=== PATIENT | male | born 1960 | race Caucasian/White ===

== ENCOUNTER 2016-05-16 12:45 | Outpatient (CLI) | payer MEDICAID, MEDICARE | END 2016-05-16 12:46 | disposition home or self-care (01) | DX: I49.3 Ventricular premature depolarization (principal); E78.00 Pure hypercholesterolemia, unspecified; R00.0 Tachycardia, unspecified; R03.0 Elevated blood-pressure reading, without diagnosis of hypertension ==

== ENCOUNTER 2016-12-06 09:15 | Outpatient (CLI) | payer MEDICARE ==
[2016-12-06 12:46] LABS: BASOPHILS # (AUTO) 0.1 10^3/uL (0.0-0.1); BASOPHILS % (AUTO) 1.1 %; EOSINOPHILS # (AUTO) 0.3 10^3/uL (0.0-0.7); EOSINOPHILS % (AUTO) 3.3 %; HCT - HEMATOCRIT 51.8 % (42.0-52.0); HGB - HEMOGLOBIN 17.3 g/dL (14.0-18.0); LYMPHOCYTES # (AUTO) 2.5 10^3/uL (1.5-3.5); MEAN CORPUSCULAR HEMOGLOBIN 32.8 pg (27.0-31.0); MEAN CORPUSCULAR HGB CONC 33.5 g/dL (32.0-36.0); MEAN PLATELET VOLUME 9.7 fL (7.4-11.4); MONOCYTES # (AUTO) 0.7 10^3/uL (0.0-1.0); NEUTROPHILS # (AUTO) 4.6 10^3/uL (1.5-6.6); NEUTROPHILS % (AUTO) 56.6 %; RED BLOOD COUNT 5.29 10^6/uL (4.70-6.10); RED CELL DISTRIBUTION WIDTH 13.8 % (12.0-15.0); UNCORRECTED WHITE BLOOD COUNT 8.2 x10^3/uL; WHITE BLOOD COUNT 8.2 x10^3/uL (4.8-10.8)
[2016-12-06 12:50] LABS: ALBUMIN/GLOBULIN RATIO 1.5 (1.0-2.2); BILIRUBIN,TOTAL 0.7 mg/dL (0.2-1.0); BUN - BLOOD UREA NITROGEN 19 mg/dL (6-20); CALCIUM 9.2 mg/dL (8.5-10.3); CARBON DIOXIDE - CO2 23 mmol/L (21-32); CHLORIDE 108 mmol/L (101-111); CHOL/HDL RATIO 3.6 (<5.0); CHOLESTEROL 130 mg/dL; GFR - MDRD 78 (>89); GLUCOSE 110 mg/dL (70-100); HDL CHOLESTEROL 36 mg/dL; POTASSIUM 4.8 mmol/L (3.5-5.0); SODIUM 137 mmol/L (135-145); TOTAL PROTEIN 7.5 g/dL (6.7-8.2); TRIGLYCERIDES 114 mg/dL; VLDL CHOLESTEROL 23 mg/dL
== END 2016-12-06 09:16 | disposition home or self-care (01) ==
LOC: LAB.N 09:15
PROVIDERS: ATTEND Nurse Practitioner Gerontology
DX: I10 Essential (primary) hypertension (principal); E78.5 Hyperlipidemia, unspecified; Z79.899 Other long term (current) drug therapy
CPT/HCPCS: 36415; 80053; 80061; 84443; 85025

== ENCOUNTER 2017-04-05 09:58 | Outpatient (CLI) | payer MEDICARE, OTHER | END 2017-04-05 09:59 | disposition critical access hospital (66) | LOC: EMS 09:58 | PROVIDERS: ATTEND Surgery | DX: R42 Dizziness and giddiness (principal); R11.2 Nausea with vomiting, unspecified | CPT/HCPCS: A0425; A0429 ==

== ENCOUNTER 2017-04-05 10:15 | Emergency (ER) | payer MEDICARE, OTHER ==
[2017-04-05] MEDS ORDERED: MECLIZINE 12.5 MG TABLET PO STA ×2 (11:57→17:13)
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
[2017-04-05] MEDS ORDERED: ONDANSETRON ODT 4 MG TABLET TL STA (13:14)
[2017-04-05] MEDS: diazePAM 5 MG TABLET PO STA ×2 (13:18→13:21)
[2017-04-05] MEDS ORDERED: diazePAM 5 MG TABLET PO STA (14:47)
[2017-04-05] MEDS ORDERED: SODIUM CHLORIDE 0.9% 1,000 ML IV ONE (15:40)
[2017-04-05] MEDS ORDERED: GABAPENTIN 100 MG CAPSULE PO STA (15:42)
[2017-04-05 15:57] LABS: BASOPHILS # (AUTO) 0.1 10^3/uL (0.0-0.1); BASOPHILS % (AUTO) 1.1 %; EOSINOPHILS % (AUTO) 0.4 %; HGB - HEMOGLOBIN 16.7 g/dL (14.0-18.0); LYMPHOCYTES # (AUTO) 1.7 10^3/uL (1.5-3.5); LYMPHOCYTES % (AUTO) 20.5 %; MEAN CORPUSCULAR HEMOGLOBIN 32.9 pg (27.0-31.0); MEAN CORPUSCULAR HGB CONC 33.6 g/dL (32.0-36.0); MEAN CORPUSCULAR VOLUME 97.9 fL (80.0-94.0); MEAN PLATELET VOLUME 8.5 fL (7.4-11.4); MONOCYTES # (AUTO) 0.5 10^3/uL (0.0-1.0); MONOCYTES % (AUTO) 6.4 %; NEUTROPHILS # (AUTO) 5.9 10^3/uL (1.5-6.6); NEUTROPHILS % (AUTO) 71.6 %; PLT - PLATELET COUNT 186 10^3/uL (130-450); RED BLOOD COUNT 5.07 10^6/uL (4.70-6.10); RED CELL DISTRIBUTION WIDTH 13.7 % (12.0-15.0); WHITE BLOOD COUNT 8.2 x10^3/uL (4.8-10.8)
[2017-04-05 16:08] LABS: ALBUMIN 4.4 g/dL (3.2-5.5); ALBUMIN/GLOBULIN RATIO 1.6 (1.0-2.2); ALKALINE PHOSPHATASE 47 IU/L (42-121); ALT ALANINE AMINOTRANSFERASE 26 IU/L (10-60); AST ASPARTATE AMINOTRANSFERASE 23 IU/L (10-42); BILIRUBIN,TOTAL 0.5 mg/dL (0.2-1.0); BUN - BLOOD UREA NITROGEN 19 mg/dL (6-20); CALCIUM 9.3 mg/dL (8.5-10.3); CARBON DIOXIDE - CO2 22 mmol/L (21-32); CHLORIDE 105 mmol/L (101-111); CREATININE 0.8 mg/dL (0.6-1.2); GFR - MDRD 101 (>89); GLUCOSE 104 mg/dL (70-100); LIPASE 38 U/L (22-51); SODIUM 139 mmol/L (135-145); TOTAL PROTEIN 7.2 g/dL (6.7-8.2)
[2017-04-05 16:50] VITALS: BP 135/84
== END 2017-04-05 17:40 | disposition home or self-care (01) ==
LOC: EDUNIT# → ED 10:15
DX: R42 Dizziness and giddiness (principal); S06.0X0A Concussion without loss of consciousness, initial encounter; Y08.89XA Assault by other specified means, initial encounter; I10 Essential (primary) hypertension; E78.00 Pure hypercholesterolemia, unspecified; F17.200 Nicotine dependence, unspecified, uncomplicated
CPT/HCPCS: 36415; 70450; 80053; 83690; 85025; 96360; 99284; A9270; G0480; Q0162; 80320

== ENCOUNTER 2018-02-06 08:51 | Outpatient (CLI) | payer MEDICARE ==
[2018-02-07 12:42] LABS: HEPATITIS C ANTIBODY NON-REACTIVE (NON-REACTIVE)
== END 2018-02-06 08:52 | disposition home or self-care (01) ==
LOC: LAB.N 08:51
PROVIDERS: ATTEND Nurse Practitioner Gerontology
DX: Z20.5 Contact with and (suspected) exposure to viral hepatitis (principal)
CPT/HCPCS: 36415; 86803

== ENCOUNTER 2018-08-03 08:00 | Outpatient (CLI) | payer MEDICARE ==
[2018-08-03 13:32] LABS: ALBUMIN 4.3 g/dL (3.2-5.5); ALBUMIN/GLOBULIN RATIO 1.4 (1.0-2.2); ALKALINE PHOSPHATASE 50 IU/L (42-121); ALT ALANINE AMINOTRANSFERASE 34 IU/L (10-60); AST ASPARTATE AMINOTRANSFERASE 27 IU/L (10-42); BILIRUBIN,TOTAL 0.6 mg/dL (0.2-1.0); BUN - BLOOD UREA NITROGEN 20 mg/dL (6-20); CALCIUM 9.1 mg/dL (8.5-10.3); CARBON DIOXIDE - CO2 24 mmol/L (21-32); CHLORIDE 104 mmol/L (101-111); CHOL/HDL RATIO 4.3 (<5.0); CHOLESTEROL 124 mg/dL; GFR - MDRD 77 (>89); GLUCOSE 132 mg/dL (70-100); HDL CHOLESTEROL 29 mg/dL; LDL CHOLESTEROL,CALCULATED 50 mg/dL; LDL/HDL RATIO 1.7 (<3.6); MAGNESIUM 2.1 mg/dL (1.7-2.8); SODIUM 138 mmol/L (135-145); TOTAL PROTEIN 7.3 g/dL (6.7-8.2); VLDL CHOLESTEROL 45 mg/dL
== END 2018-08-03 23:59 | disposition home or self-care (01) ==
LOC: LAB.N 08:00
PROVIDERS: ATTEND Internal Medicine Cardiovascular Disease
DX: E78.00 Pure hypercholesterolemia, unspecified (principal); I49.3 Ventricular premature depolarization; I47.2 Ventricular tachycardia; R06.02 Shortness of breath
CPT/HCPCS: 36415; 80053; 80061; 83721; 83735; 84443

== ENCOUNTER 2018-08-16 14:29 | Outpatient (CLI) | payer MEDICARE ==
--- NOTE | 2018-08-16 17:55 | XRAY Report ---
Reason: SOB Procedure Date: 08/16/2018 Accession Number: [id number] / [id number] Procedure: XRN - Chest 2 View X-Ray CPT Code: 20947 FULL RESULT: EXAM: CHEST RADIOGRAPHY EXAM DATE: 08/16/2018 02:40 PM. CLINICAL HISTORY: SOB. COMPARISON: 03/17/2012 TECHNIQUE: 2 views. FINDINGS: Lungs/Pleura: No focal opacities evident. No pleural effusion. No pneumothorax. Normal volumes. Mediastinum: Heart and mediastinal contours are unremarkable. Other: Negative bony structures. Implanted cardiac device overlies the left chest. IMPRESSION: Clear lungs. No acute findings. [facility]
== END 2018-08-16 14:30 | disposition home or self-care (01) ==
LOC: DI.N 14:29
PROVIDERS: ATTEND Internal Medicine Cardiovascular Disease
DX: R06.02 Shortness of breath (principal)
CPT/HCPCS: 71046

== ENCOUNTER 2018-08-29 08:59 | Outpatient (CLI) | payer MEDICARE ==
[~2018-08-29 08:59] MED LIST: ALBUTEROL NEB 2.5 MG/3 ML INH ONE
== END 2018-08-29 09:00 | disposition home or self-care (01) ==
LOC: RT 08:59
PROVIDERS: ATTEND Internal Medicine Cardiovascular Disease
DX: R06.02 Shortness of breath (principal)
CPT/HCPCS: 94010; 94729

== ENCOUNTER 2018-10-15 09:19 | Outpatient (CLI) | payer MEDICARE ==
--- NOTE | 2018-10-15 10:02 | CONSULTATION NOTE ---
Information from patient questionnaire entered by Kylie Chou. I have reviewed and concur with the information entered by Kylie Chou. This document represents the service I personally performed and the decisions made by me, Mickie Andres MD, [facility]. - History of Present Illness Chief Complaint: Other (Doctor requested this visit) The patient tells me that he has cardiac arrhythmia and his petroleum supply specialist wants a sleep study. He normally goes to bed around 11:30 pm, and it takes him approximately 15 minutes to fall asleep. He has been told that he snores lightly at night. He has not been observed to stop breathing in his sleep. His sleeps in the same bed and snores loudly. He can recall waking up on the average of 4 times during the night. Most of the time he wakes up because of pain or bad memories. He has not awakened for his own snoring, choking, and having to gasp for air. There is a lot of tossing and turning in his sleep. Generally he can recall having dreams. He usually wakes up at 4:00-6:00 am and does not feel refreshed. He usually does not have a morning headache. During the day he complains of feeling sleepy and fatigued. He has never fallen asleep while driving nor has any accident due to sleepiness. He usually naps during the day. If he naps, upon falling asleep during the day he reports having dreams. There is somniloquy (sleep talking) but no somnambulism (sleep walking). He has never experienced sleep paralysis, cataplexy, or symptoms of restless leg syndrome. He denies having impaired concentration during the day. [place] Sleepiness Scale Score: 5 - Past Medical History Past Medical History: Hypertension, Claustrophobia, Arthritis, Other (skippy heart beat) - Allergies/Home Medications Allergies tetanus and diphtheria toxoids Allergy (Verified 04/05/17 10:27) Unknown - Social History The patient's occupation is a [employer]. Patient is and lives in [place]. Smoked in the past 12 months: Yes Cigarettes per day (20/pack): 10 Years of smokin Smoking Pack Years: 23.0 Alcohol use: No Caffeine use: Yes Amount and frequency: 3 cups/day - Family History Family history of sleep disordered breathing: No - Review of Systems Weight gain over past 5 years: 40 Cardiovascular: reports: high blood pressure, palpitations, irregular heart rate or pulse Gastrointestinal: reports: heartburn, nausea, vomitting Urinary: denies: incontinence, frequency, urgency, impotence, other: Neurological: denies: headaches, seizure, head trauma, disorientation, speech dysfunction, gait or balance problems, fainting or unconsciousness, other: Psychiatric: reports: claustrophobia Ear/Nose/Throat: reports: nasal congestion, injury to nose, wisdom teeth removed Endocrine: denies: thyroid disease, history of goiter, sluggishness, too hot or cold, excessive thirst, increased appetite, increased urination, unexplained weakness, other: Musculoskeletal: denies: joint pain, neck pain, back pain, joint swelling, muscle pain or cramping, mobility problems, other: - Physical Examination Vital signs obtained and documented by: Dr. Andres Blood Pressure: 100/60 Cuff size: regular Heart Rate: 56 O2 Saturation: 98 Height: 6 ft 1 in Weight (kg): 118.026 kg Body Mass Index: 34.3 BMI Classification: Class 1 Neck circumference: 18 Mood/affect: normal HEENT: No craniofacial malformation Nostrils: patent to airflow Turbinates: normal Septum: midline Mouth and throat: narrow oropharynx Soft palate: long Hard palate: normal Uvula: normal Tongue: normal in size Tonsils: small Chin and jaw: normal size and position Neck: normal w/o lymphadenopathy or thyromegaly Heart: regular rate and rhythm Lungs: clear bilaterally Abdomen: soft, non-tender Extremities: no edema or clubbing Neurologic: intact, no focal deficits - Impression 1. Suspected Obstructive Sleep Apnea-Hypopnea Syndrome, as suggested by a history of loud and irregular snoring, frequent awakening during the night, and excessive daytime sleepiness. Narrow oropharynx and obesity are common predisposing factors for obstructive sleep apnea-hypopnea syndrome. Obstructive sleep can cause hypertension and cardiac arrhythmias. I recommend proceeding to polysomnography to confirm the diagnosis and to assess severity. If the patient has significant sleep disordered breathing, a manual CPAP titration study will also be performed to find the optimal treatment pressure. I informed the patient of what the sleep studies involve and after some discussion, obtained agreement to proceed. The pathophysiology of obstructive sleep apnea-hypopnea syndrome was discussed with the patient and health risks of cardiovascular and cerebrovascular disease if not treated. Risks of drowsy driving discussed in detail and patient advised to avoid long distance driving and to lumber puller at the first sign of drowsiness. Patient agreed to plan. - Plan Schedule polysomnography +- manual CPAP titration study and return in 1-2 weeks after the study to discuss result and initiate therapy. Avoid long distance driving or driving when feeling sleepy. Avoid alcohol, sedative and muscle relaxant around bedtime. Attempt to lose weight. Review instructions provided by trained office staff on how to prepare for the sleep study. Return for follow-up after sleep study completed. I spent 100% of this 15 minute visit face to face with the patient with greater than 50% of this was spent time counseling the patient and coordination of care.
[2018-10-15 10:03] VITALS: BP 100/60
== END 2018-10-15 09:20 | disposition home or self-care (01) ==
LOC: SC 09:19
PROVIDERS: ATTEND Internal Medicine Pulmonary Disease
DX: G47.10 Hypersomnia, unspecified (principal); R06.83 Snoring; G47.8 Other sleep disorders; I49.9 Cardiac arrhythmia, unspecified; F17.210 Nicotine dependence, cigarettes, uncomplicated
CPT/HCPCS: 99203; G0463; 99212

== ENCOUNTER 2018-10-17 19:25 | Outpatient (CLI) | payer MEDICARE | END 2018-10-17 19:26 | disposition home or self-care (01) | LOC: SC 19:25 | PROVIDERS: ATTEND Internal Medicine Pulmonary Disease | DX: G47.33 Obstructive sleep apnea (adult) (pediatric) (principal); G47.61 Periodic limb movement disorder; E66.9 Obesity, unspecified; Z68.34 Body mass index [BMI] 34.0-34.9, adult | CPT/HCPCS: 95810 ==

== ENCOUNTER 2018-11-15 09:15 | Outpatient (CLI) | payer MEDICARE ==
[2018-11-15 10:30] VITALS: BP 120/80
--- NOTE | 2018-11-15 10:30 | SLEEP CARE CONSULTATION ---
Information from patient questionnaire entered by Jazmine Mccoy. I have reviewed and concur with the information entered by Jazmine Mccoy. This document represents the service I personally performed and the decisions made by me, Lilian Amor, RN, MSN, [employer] HE[employer] DIETITIAN. History of Present Illness Initial [place] Sleepiness Scale score: 5 Current [place] Sleepiness Scale score: 5 Additional HPI information: LISA CRUZ returns for follow up of the recently performed polysomnography and I informed him of the polysomnography findings. I explained the pathophysiology behind obstructive sleep apnea. We then spent quite a bit of time discussing different treatment options. For mild obstructive sleep apnea, surgery and oral appliance are alternatives to nasal CPAP therapy but in moderate or severe cases, nasal CPAP is the most effective and reliable treatment. I reviewed the impact of weight changes on sleep apnea and strongly recommended losing weight. After much discussion and showing mask samples, the patient opted to go with the nasal CPAP therapy. Nasal autoCPAP set at [id number] will be ordered as patient feels he would do better trying at home than initiating in a manual titration study. A manual titration study will be ordered if unable to find optimal pressure with office adjustments. I explained how CPAP machine works with sample devices [employer] Dreamstation and [employer] [id number] and what to expect when using the machine. Using CPAP every night in order to get used to it was emphasized. Patient advised to put CPAP mask on before getting into bed so as not to fall asleep without CPAP. To assist acclimation to CPAP use, it could also be used for a short time during day while reading or watching TV. The patient was instructed to call the CPAP supplier to discuss any mechanical problem that may occur. If the mask given is uncomfortable or is difficult to keep on through the night even with adjustment, contact the CPAP supplier as many will replace with another mask style if notified before 30 days. If snoring or perceives is not getting enough air or too much air from the machine, notify this office. AAS patient education PAP tips and Non Pap treatment pamphlets reviewed and given to patient. Patient counseled not drink alcohol less than 4 hours before bedtime as it can increase snoring and apnea. Patient does not drink alcohol. Patient was cautioned about risks of drowsy driving until sleepiness symptoms resolve. Patient denies drowsy driving. AAS patient education on snoring and sleep apnea given and reviewed. Sleep Study - Polysomnography Polysomnography findings: The quality of the study is good. The patient had normal sleep efficiency. The sleep architecture was abnormal for sleep fragmentation and reduced amount of time spent in slow wave sleep (N3). Respiratory monitoring showed moderate obstructive sleep apnea-hypopnea (AHI = 28.5) associated with frequent arousals, oxyhemoglobin desaturation and mild hypoxia (britta oxygen saturation of 87%). The patient did not sleep supine during this study (supine AHI = 0.0; non-supine = 28.47). Snore was light to loud in intensity. There was mild periodic leg movement of sleep not contributing to the sleep fragmentation. Cardiac rhythm was normal sinus rhythm without significant arrhythmia. No abnormal behavior (parasomnia) observed during the night. Allergies and Home Medications Known drug allergies: Yes (tetanus toxoid) Home medication list reviewed: Yes Allergy and home medication list: aspirin 81mg daily bisoprolol 5mg daily lovastatin 40mg HS Physical Exam Blood Pressure: 120/80 Cuff size: long Heart Rate: 73 O2 Saturation: 98 Height: 6 ft 1 in Weight (kg): 118.66 kg Body Mass Index: 34.4 BMI Classification: Class 1 Impression and Plan 1. Obstructive Sleep Apnea-Hypopnea Syndrome, moderate, with lowest oxygen saturation of 87%. Obviously this is the cause of the patients symptoms of fatigue and excessive daytime sleepiness. Positive pressure therapy could benefit his hypertension and arrhythmia as well has his PTSD. Patient felt he could not use CPAP until nasal mask samples shown. As mentioned above, the patient will be started on nasal autoCPAP therapy with pressure set at 4-15 cmH2 O. A manual titration study will be completed if unable to find optimal treatment pressure with office adjustments. Compliance guidelines also reviewed. A copy of compliance guidelines will be given for reference at check out. 2. Periodic limb movement, mild, that did not fragment patients sleep. Periodic limb movement of sleep (PLMS) is characterized by episodes of repetitive limb movements that occur during sleep and usually involve the lower limbs. The etiology is unknown but can be associated with restless leg syndrome (RLS), neuropathy, spinal cord diseases, kidney disease, rheumatological disorders, narcolepsy, obstructive sleep apnea, and REM sleep behavior disorder. Other factors that can increase PLMS and/or RLS are heredity and iron deficiency as reflected by a low serum ferritin level below 50 to 75mcg / L. Several medications can precipitate or aggravate PLMS such as selective serotonin re- uptake inhibitor antidepressants, tricyclic antidepressants, lithium, and dopamine receptor antagonists with the exception of bupropion. Caffeine can also aggravate PLMS and should be avoided. Sleep hygiene methods can also improve sleep as well as lifestyle changes such as regular exercise. At this time, no treatment is indicated as PLMS do not fragment sleep. * Nasal auto CPAP therapy, pressure at 4-15 cm H2O. * Attempt to lose weight. * Avoid alcohol consumption near bedtime. * Avoid supine sleep until using CPAP. * The patient is again cautioned about driving until sleepiness completely resolves. * copy of sleep study results to kitchen aide and this report. * Return one month after CPAP obtained. I will assess response to therapy and compliance at that time. Addendum: At check out, when explaining Medicare coverage, he stated he could not afford to pursue treatment as has no secondary insurance and lives on a very limited income. If I am able to find an assistance program, I will contact patient. I spent 100% of this 40 minute visit face to face with the patient with greater than 50% of this was spent time counseling the patient and coordination of care.
== END 2018-11-15 09:16 | disposition home or self-care (01) ==
LOC: SC 09:15
PROVIDERS: ATTEND Nurse Practitioner Family
DX: G47.33 Obstructive sleep apnea (adult) (pediatric) (principal); G47.61 Periodic limb movement disorder
CPT/HCPCS: 99215; G0463; 99212

== ENCOUNTER 2019-02-15 13:58 | Outpatient (CLI) | payer MEDICARE ==
--- NOTE | 2019-02-15 15:03 | XRAY Report ---
Reason: LYMPHADENITIS Procedure Date: 02/15/2019 Accession Number: [id number] / [id number] Procedure: XRN - Neck Soft Tissue CPT Code: Final Report FULL RESULT: EXAM: SOFT TISSUE NECK RADIOGRAPHY EXAM DATE: 02/15/2019 02:40 PM. CLINICAL HISTORY: LYMPHADENITIS. COMPARISONS: MANDIBLE BILAT 02/15/2019 2:24 PM. TECHNIQUE: 2 views. FINDINGS: Soft Tissues: No prevertebral soft tissue swelling. The epiglottis and aryepiglottic folds are unremarkable. No tonsillar or adenoidal enlargement. No radiopaque foreign body. Regional Skeleton: Unremarkable for age. Other: The visualized lung apices are clear. IMPRESSION: Normal soft tissue neck radiography. No compromise to the aerodigestive tract. [facility]
--- NOTE | 2019-02-15 15:05 | XRAY Report ---
Reason: LYMPHADENITIS Procedure Date: 02/15/2019 Accession Number: [id number] / [id number] Procedure: XRN - Mandible Bilat CPT Code: Final Report FULL RESULT: EXAM: MANDIBLE RADIOGRAPHY EXAM DATE: 02/15/2019 02:40 PM. HISTORY: LYMPHADENITIS. COMPARISONS: None. TECHNIQUE: 4 views. FINDINGS: Bones: Normal. No fractures or bone lesions. Temporomandibular Joints: Normal. The temporomandibular joints are normally located and symmetric. Sinuses: Normal. No opacities or fluid levels. Other: Partially edentulous. Degenerative changes of the spine with marked lower cervical neural foraminal narrowing. Otherwise unremarkable. IMPRESSION: No acute disease. [facility]
== END 2019-02-15 13:59 | disposition home or self-care (01) ==
LOC: DI.N 13:58
PROVIDERS: ATTEND Physician Assistant Medical
DX: L04.8 Acute lymphadenitis of other sites (principal); L04.0 Acute lymphadenitis of face, head and neck
CPT/HCPCS: 36415; 70110; 70360; 80048; 85025

== ENCOUNTER 2019-02-15 14:53 | Outpatient (CLI) | payer MEDICARE ==
[2019-02-15 18:35] LABS: BASOPHILS # (AUTO) 0.1 10^3/uL (0.0-0.1); EOSINOPHILS # (AUTO) 0.3 10^3/uL (0.0-0.7); EOSINOPHILS % (AUTO) 2.6 %; HGB - HEMOGLOBIN 17.2 g/dL (14.0-18.0); LYMPHOCYTES # (AUTO) 2.5 10^3/uL (1.5-3.5); LYMPHOCYTES % (AUTO) 25.3 %; MEAN CORPUSCULAR HEMOGLOBIN 32.5 pg (27.0-31.0); MEAN CORPUSCULAR HGB CONC 32.8 g/dL (32.0-36.0); MEAN CORPUSCULAR VOLUME 98.9 fL (80.0-94.0); MONOCYTES # (AUTO) 1.3 10^3/uL (0.0-1.0); MONOCYTES % (AUTO) 12.9 %; NEUTROPHILS # (AUTO) 5.8 10^3/uL (1.5-6.6); NEUTROPHILS % (AUTO) 57.5 %; PLT - PLATELET COUNT 269 10^3/uL (130-450); WHITE BLOOD COUNT 10.1 x10^3/uL (4.8-10.8)
[2019-02-15 18:42] LABS: CALCIUM 9.2 mg/dL (8.5-10.3); CREATININE 1.2 mg/dL (0.6-1.2)
== END 2019-02-15 23:59 | disposition home or self-care (01) ==
LOC: LAB.N 14:53
PROVIDERS: ATTEND Physician Assistant Medical
DX: L04.0 Acute lymphadenitis of face, head and neck (principal)
CPT/HCPCS: 36415; 80048; 85025

== ENCOUNTER 2019-03-22 09:30 | Outpatient (CLI) | payer MEDICARE | END 2019-03-22 23:59 | disposition home or self-care (01) | LOC: LAB.R 09:30 | PROVIDERS: ATTEND Nurse Practitioner Gerontology | DX: L72.9 Follicular cyst of the skin and subcutaneous tissue, unspecified (principal) | CPT/HCPCS: 81599; 87070; 87075; 87205 ==

== ENCOUNTER 2020-06-18 08:00 | Outpatient (CLI) | payer MEDICARE ==
[2020-06-18 18:05] LABS: ALBUMIN 4.4 g/dL (3.2-5.5); ALBUMIN/GLOBULIN RATIO 1.5 (1.0-2.2); ALKALINE PHOSPHATASE 44 IU/L (42-121); ALT ALANINE AMINOTRANSFERASE 42 IU/L (10-60); AST ASPARTATE AMINOTRANSFERASE 27 IU/L (10-42); BILIRUBIN,TOTAL 0.7 mg/dL (0.2-1.0); BUN - BLOOD UREA NITROGEN 18 mg/dL (6-20); CALCIUM 9.6 mg/dL (8.5-10.3); CARBON DIOXIDE - CO2 23 mmol/L (21-32); CHLORIDE 105 mmol/L (101-111); CHOL/HDL RATIO 4.3 (<5.0); CHOLESTEROL 134 mg/dL; GFR - MDRD 77 (>89); GLUCOSE 143 mg/dL (70-100); HDL CHOLESTEROL 31 mg/dL; LDL CHOLESTEROL,CALCULATED 62 mg/dL; POTASSIUM 4.1 mmol/L (3.5-5.0); SODIUM 137 mmol/L (135-145); TOTAL PROTEIN 7.3 g/dL (6.7-8.2); TRIGLYCERIDES 207 mg/dL; VLDL CHOLESTEROL 41 mg/dL
[2020-06-18 20:10] LABS: ESTIMATED AVERAGE GLUCOSE 171 mg/dL (70-100); HEMOGLOBIN A1c% 7.6 % (4.27-6.07)
[2020-06-22 13:42] LABS: HCV RNA QUANT RT PCR <15 NOT DETECTED IU/mL
== END 2020-06-18 23:59 | disposition home or self-care (01) ==
LOC: LAB.WCP 08:00
PROVIDERS: ATTEND Family Medicine
DX: I10 Essential (primary) hypertension (principal); E78.5 Hyperlipidemia, unspecified; R73.9 Hyperglycemia, unspecified; Z12.5 Encounter for screening for malignant neoplasm of prostate; Z20.5 Contact with and (suspected) exposure to viral hepatitis
CPT/HCPCS: 36415; 80053; 80061; 83036; 87522; G0103; 83721; 84153

== ENCOUNTER 2021-03-22 08:00 | Outpatient (CLI) | payer MEDICARE ==
[2021-03-22 20:17] LABS: BASOPHILS # (AUTO) 0.1 10^3/uL (0.0-0.1); BASOPHILS % (AUTO) 1.2 %; EOSINOPHILS # (AUTO) 0.3 10^3/uL (0.0-0.7); EOSINOPHILS % (AUTO) 3.4 %; HCT - HEMATOCRIT 53.2 % (42.0-52.0); HGB - HEMOGLOBIN 17.7 g/dL (14.0-18.0); LYMPHOCYTES # (AUTO) 1.9 10^3/uL (1.5-3.5); LYMPHOCYTES % (AUTO) 22.6 %; MEAN CORPUSCULAR HEMOGLOBIN 33.1 pg (27.0-31.0); MEAN CORPUSCULAR HGB CONC 33.3 g/dL (32.0-36.0); MEAN CORPUSCULAR VOLUME 99.6 fL (80.0-94.0); MEAN PLATELET VOLUME 11.8 fL (7.4-11.4); MONOCYTES # (AUTO) 0.8 10^3/uL (0.0-1.0); NEUTROPHILS # (AUTO) 5.1 10^3/uL (1.5-6.6); NEUTROPHILS % (AUTO) 62.2 %; PLT - PLATELET COUNT 220 10^3/uL (130-450); RED BLOOD COUNT 5.34 10^6/uL (4.70-6.10); RED CELL DISTRIBUTION WIDTH 13.4 % (12.0-15.0); WHITE BLOOD COUNT 8.2 x10^3/uL (4.8-10.8)
[2021-03-22 20:26] LABS: ALBUMIN 4.6 g/dL (3.2-5.5); ALBUMIN/GLOBULIN RATIO 1.7 (1.0-2.2); ALKALINE PHOSPHATASE 39 IU/L (42-121); ALT ALANINE AMINOTRANSFERASE 37 IU/L (10-60); AST ASPARTATE AMINOTRANSFERASE 31 IU/L (10-42); BILIRUBIN,TOTAL 0.5 mg/dL (0.2-1.0); BUN - BLOOD UREA NITROGEN 19 mg/dL (6-20); CALCIUM 9.5 mg/dL (8.5-10.3); CARBON DIOXIDE - CO2 22 mmol/L (21-32); CHLORIDE 105 mmol/L (101-111); CHOL/HDL RATIO 4.1 (<5.0); CHOLESTEROL 136 mg/dL; CREATININE 1.2 mg/dL (0.6-1.2); GFR - MDRD 62 (>89); GLUCOSE 124 mg/dL (70-100); HDL CHOLESTEROL 33 mg/dL; LDL CHOLESTEROL,CALCULATED 53 mg/dL; LDL/HDL RATIO 1.6 (<3.6); POTASSIUM 4.4 mmol/L (3.5-5.0); SODIUM 138 mmol/L (135-145); TOTAL PROTEIN 7.3 g/dL (6.7-8.2); TRIGLYCERIDES 251 mg/dL; VLDL CHOLESTEROL 50 mg/dL
[2021-03-22 21:26] LABS: ESTIMATED AVERAGE GLUCOSE 131 mg/dL (70-100); HEMOGLOBIN A1c% 6.2 % (4.27-6.07)
== END 2021-03-22 23:59 ==
LOC: LAB.WCP 08:00
PROVIDERS: ATTEND Family Medicine
DX: E11.9 Type 2 diabetes mellitus without complications (principal)
CPT/HCPCS: 36415; 80053; 80061; 82043; 82570; 83036; 83721; 85025

== ENCOUNTER 2021-03-24 08:00 | Outpatient (CLI) | payer MEDICARE ==
[2021-03-24 18:55] LABS: CREATININE,URINE 204.5 mg/dL; MICROALBUM/CREATININE RATIO,UR 8.8 ug/mg (<30.0); MICROALBUMIN,URINE 1.8 mg/dL (0-300.0)
[2021-03-24 20:06] LABS: FECAL OCCULT BLOOD (FIT) NEGATIVE (NEGATIVE)
== END 2021-03-24 23:59 ==
LOC: LAB.R 08:00
PROVIDERS: ATTEND Family Medicine
DX: E11.9 Type 2 diabetes mellitus without complications (principal); Z12.11 Encounter for screening for malignant neoplasm of colon
CPT/HCPCS: 82043; 82274; 82570

== ENCOUNTER 2021-07-26 10:38 | Outpatient (CLI) | payer MEDICARE ==
--- NOTE | 2021-07-26 14:28 | CT Report ---
PROCEDURE: Low Dose Lung Cancer Screen INDICATIONS: SMOKER TECHNIQUE: Noncontrast low-dose images were acquired from the pulmonary apices to the posterior costophrenic ang les. Multiplanar MIP reformats were then acquired. For radiation dose reduction, the following was used: automated exposure control, adjustment of mA and/or kV according to patient size. COMPARISON: CT chest 08/30/2013. FINDINGS: Image quality: Excellent. Lungs and pleura: No mass or significant pulmonary nodules. No significant airspace opacity. The tiffany tral airways are clear. No pleural effusion. No pneumothorax. Mediastinum: Heart size is normal. Minimal coronary artery calcifications. No pericardial effusion. No mediastinal adenopathy by size criteria. Thoracic aorta and central pulmonary arteries are nohemy l in size. Esophagus is normal in caliber. No hiatal hernia. Bones and chest wall: No suspicious bony lesions. No vertebral body compression fractures. No axil marisol or supraclavicular adenopathy by size criteria. Thyroid gland is not well seen. Abdomen: Visualized upper abdomen solid organs and bowel loops appear normal in the absence of contr ast. IMPRESSION: No significant pulmonary nodules. Recommend a follow-up lung cancer screening chest CT in 12 months. Reviewed by: Hasmukh Mcgarry MD on 07/26/2021 2:27 PM PDT Approved by: Hasmukh Mcgarry MD on 07/26/2021 2:27 PM PDT Station ID: [id number]
== END 2021-07-26 10:39 | disposition home or self-care (01) ==
LOC: DI 10:38
PROVIDERS: ATTEND Family Medicine
DX: Z12.2 Encounter for screening for malignant neoplasm of respiratory organs (principal); F17.210 Nicotine dependence, cigarettes, uncomplicated

== ENCOUNTER 2023-04-17 07:54 | Outpatient (CLI) | payer MEDICARE ==
[2023-04-17 12:27] LABS: BASOPHILS # (AUTO) 0.1 10^3/uL (0.0-0.1); BASOPHILS % (AUTO) 1.1 %; EOSINOPHILS # (AUTO) 0.2 10^3/uL (0.0-0.7); EOSINOPHILS % (AUTO) 2.6 %; HCT - HEMATOCRIT 56.2 % (42.0-52.0); HGB - HEMOGLOBIN 18.1 g/dL (14.0-18.0); LYMPHOCYTES # (AUTO) 2.2 10^3/uL (1.5-3.5); LYMPHOCYTES % (AUTO) 27.9 %; MEAN CORPUSCULAR HEMOGLOBIN 32.3 pg (27.0-31.0); MEAN CORPUSCULAR HGB CONC 32.2 g/dL (32.0-36.0); MEAN CORPUSCULAR VOLUME 100.2 fL (80.0-94.0); MEAN PLATELET VOLUME 11.9 fL (7.4-11.4); MONOCYTES # (AUTO) 0.8 10^3/uL (0.0-1.0); MONOCYTES % (AUTO) 9.7 %; NEUTROPHILS # (AUTO) 4.7 10^3/uL (1.5-6.6); NEUTROPHILS % (AUTO) 58.3 %; PLT - PLATELET COUNT 202 10^3/uL (130-450); RED BLOOD COUNT 5.61 10^6/uL (4.70-6.10); RED CELL DISTRIBUTION WIDTH 13.2 % (12.0-15.0)
[2023-04-17 12:57] LABS: ALBUMIN 4.3 g/dL (3.2-5.5); ALBUMIN/GLOBULIN RATIO 1.4 (1.0-2.2); ALKALINE PHOSPHATASE 52 IU/L (42-121); ALT ALANINE AMINOTRANSFERASE 36 IU/L (10-60); AST ASPARTATE AMINOTRANSFERASE 24 IU/L (10-42); BILIRUBIN,TOTAL 0.5 mg/dL (0.2-1.0); BUN - BLOOD UREA NITROGEN 15 mg/dL (6-20); CALCIUM 9.7 mg/dL (8.5-10.3); CARBON DIOXIDE - CO2 23 mmol/L (21-32); CHLORIDE 106 mmol/L (101-111); CHOL/HDL RATIO 4.2 (<5.0); CHOLESTEROL 121 mg/dL; CREATININE 1.1 mg/dL (0.6-1.3); GFR - MDRD 68 (>89); GLUCOSE 195 mg/dL (74-104); HDL CHOLESTEROL 29 mg/dL; LDL CHOLESTEROL,CALCULATED 48 mg/dL; LDL/HDL RATIO 1.7 (<3.6); POTASSIUM 4.3 mmol/L (3.5-4.5); SODIUM 137 mmol/L (135-145); TOTAL PROTEIN 7.3 g/dL (6.4-8.9); TRIGLYCERIDES 221 mg/dL (48-352); VLDL CHOLESTEROL 44 mg/dL
[2023-04-17 13:24] LABS: ESTIMATED AVERAGE GLUCOSE 200 mg/dL (70-100); HEMOGLOBIN A1c% 8.6 % (4.27-6.07)
== END 2023-04-17 07:55 | disposition home or self-care (01) ==
LOC: LAB.N 07:54
PROVIDERS: ATTEND Physician Assistant
DX: E11.9 Type 2 diabetes mellitus without complications (principal); E78.5 Hyperlipidemia, unspecified; Z12.5 Encounter for screening for malignant neoplasm of prostate; Z12.11 Encounter for screening for malignant neoplasm of colon
CPT/HCPCS: 36415; 80053; 80061; 83036; 85025; G0103; 82043; 82570; 83721; 84153

== ENCOUNTER 2023-04-18 12:27 | Outpatient (CLI) | payer MEDICARE ==
--- NOTE | 2023-04-18 19:48 | CT Report ---
PROCEDURE: Lung Cancer Screen INDICATIONS: SMOKER TECHNIQUE: A CT scan of the chest was performed. Intravenous contrast media was not administered. Images were re corded and evaluated at appropriate window settings. Reformats: axial MIP of the chest, coronal and s agittal. For radiation dose reduction, the following was used: automated exposure control, adjustment of mA and/or kV according to patient size. COMPARISON: CT chest dated 07/26/2021. FINDINGS: Image quality: Excellent. Prior cancer history: None known Lungs and pleura: No pleural effusions. No pneumothorax. Minimal 15 mm groundglass seen in the left lingula (69/4) although this most likely represents benign atelectasis, it appears slightly more prom inent than on prior study. Otherwise no suspicious pulmonary nodule which requires follow-up is seen. Mediastinum: Heart size is normal. No pericardial effusion. No large vessel abnormality. No mediastin al adenopathy by size criteria. Chest wall and lower neck: Thyroid is unremarkable. No axillary or supraclavicular adenopathy by size . Bones: No aggressive osseous abnormality. Upper Abdomen: Unremarkable. IMPRESSION: Lung RAD: 3 probably benign Recommendation: Recommend 6 month follow-up low-dose CT of the chest Non-Lung Significant Findings: None. Reviewed by: Jt Garcia MD on 04/18/2023 7:47 PM PST Approved by: Jt Garcia MD on 04/18/2023 7:47 PM PST Station ID: [id number]
== END 2023-04-18 12:28 | disposition home or self-care (01) ==
LOC: DI 12:27
PROVIDERS: ATTEND Physician Assistant
DX: Z12.2 Encounter for screening for malignant neoplasm of respiratory organs (principal); F17.210 Nicotine dependence, cigarettes, uncomplicated

== ENCOUNTER 2023-04-18 12:27 | Outpatient (CLI) | payer MEDICARE ==
[2023-04-18 13:25] LABS: CREATININE,URINE 199.6 mg/dL; MICROALBUM/CREATININE RATIO,UR 8.5 ug/mg (<30.0); MICROALBUMIN,URINE 1.7 mg/dL
[2023-04-18 14:45] LABS: FECAL OCCULT BLOOD (FIT) NEGATIVE (NEGATIVE)
== END 2023-04-18 12:28 | disposition home or self-care (01) ==
LOC: LAB.R 12:27
PROVIDERS: ATTEND Physician Assistant
DX: E11.9 Type 2 diabetes mellitus without complications (principal); Z12.11 Encounter for screening for malignant neoplasm of colon
CPT/HCPCS: 82043; 82274; 82570

== ENCOUNTER 2023-06-30 13:56 | Outpatient (CLI) | payer MEDICARE ==
--- NOTE | 2023-06-30 13:57 | Sleep Patient Instructions ---
Sleep Center Visit Summary - Patient Visit Information Reason for Visit: Initial consultation - Patient Instructions Additional Instructions: [You will be completing a sleep study, either an in-lab polysomnography (PSG) or home sleep study (HST). You will follow-up in the sleep care office after the sleep study is completed to hear the results and talk about therapy, if needed. You will be called by our office staff to schedule this appointment, but you may contact us with any questions.] - Clinic Information Contact: [facility] [address] [place] [id number] [email or web address] T: [phone]
--- NOTE | 2023-06-30 14:05 | SLEEP CARE CONSULTATION ---
Information from patient questionnaire entered by Melanie Castillo. I have reviewed and concur with the information entered by Melanie Castillo. This document represents the service I personally performed and the decisions made by me, Teresa Carlin ARNP. History of Present Illness Service Date and Time: 06/30/2023 1320 Reason for Visit: New patient, Previously diagnosed sleep apnea Chief Complaint: reports: Snoring, Other ([employer]) Date of Onset: ALL MY LIFE Usual bedtime: 2300 Time it takes to fall asleep: 30MINS Snores at night: Yes Observed to quit breathing while asleep: No Sleeps alone due to snoring: No Number of times waking at night: 3 Reasons for waking at night: reports: Pain, Bathroom, Other (NIGHTMARES). denies: Choking, Snoring, Gasping for air Toss, Turn, or Twitch while sleeping: Yes Recalls having dreams: Yes Usually gets out of bed at: [id number] Feels refreshed in the morning: Yes Morning headache: No Sleepy or fatigued during the day: Yes Ever fallen asleep while driving: No Takes day naps: Yes (not napping since being treated for diabetes) Dreams during day naps: Yes Prior sleep studies: Yes Year and Where: [facility] 2018 Type of Sleep Study: Polysomnography (10/17/2018) Additional HPI information: I had the pleasure of seeing LISA CRUZ today regarding the possibility of him having a sleep disorder. His current complaint is snoring. His doctor requested he come in for evaluation. He says he was last here in our office in 2019. A sleep study dated 10/17/2018 showed moderate obstructive sleep apnea with AHI of 28.5. He says he know he snores. He feels refreshed in morning for the most part. He is states he is hyperactive and wakes up wired and does not feel tired. He was taking naps daily until they discovered and treated his diabetes. He says he is feeling much better and his A1C is improving. His says he will wake up about 3 time a night and has woke up screaming. He says he will scream while sleeping but he has never walked in his sleep. 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 Patient is and lives in [place]. Have you smoked in the past 12 months: Yes Cigarettes per day (20/pack): 10 Years of smokin Smoking Pack Years: 25.0 Alcohol use: No Caffeine use: Yes Caffeine amount and frequency: 2 CUPS EVERY MORNING Family History Family history of sleep disordered breathing: No Allergies and Home Medications Known drug allergies: Yes (as listed) Drug allergies reviewed: Yes Home medication list reviewed: Yes (as listed) Allergy and home medication list: Allergies tetanus and diphtheria toxoids Allergy (Verified 06/29/23 12:02) Unknown Home Medications Medication Instructions Recorded Confirmed Last Taken Type Aspirin 81 mg PO DAILY 04/05/17 06/30/23 Unknown History Lovastatin See Rx Instructions .ROUTE .COMPLEX 06/30/23 06/30/23 Unknown History bisoproloL fumarate [Bisoprolol See Rx Instructions .ROUTE .COMPLEX 06/30/23 06/30/23 Unknown History Fumarate] metFORMIN [Glucophage] See Rx Instructions .ROUTE .COMPLEX 06/30/23 06/30/23 Unknown History Review of Systems Weight gain over past 5 years: 40, currently down Weight loss over past 5 years: 20 Cardiovascular: reports: high blood pressure, irregular heart rate or pulse Respiratory: reports: wheeze Gastrointestinal: denies: heartburn Neurological: denies: headaches Ear/Nose/Throat: reports: nasal congestion, sinus problems, dry mouth/throat, wisdom teeth removed. denies: tonsillectomy Musculoskeletal: reports: joint pain, neck pain, back pain, joint swelling, mobility problems Physical Exam Vital signs obtained and entered by: MELANIE Reina MA Blood Pressure: 121/85 (RIGHT ARM) Cuff size: regular Heart Rate: 82 O2 Saturation: 97 Height: 6 ft Weight: 251 lb 12.8 oz Body Mass Index: 34.1 BMI Classification: Obese Neck circumference: 20 Mouth and throat: narrow oropharynx Soft palate: long Hard palate: normal Uvula: normal Uvula visualization: 25% Mallampati Class III Tongue: enlarged in size with teeth colin on lateral edges Tonsils: 2+ Neck: normal w/o lymphadenopathy or thyromegaly Heart: irregular rhythm Lungs: clear bilaterally Impression and Plan 1. Suspected Obstructive Sleep Apnea-Hypopnea Syndrome, as previously diagnosed and as suggested by a history of loud and irregular snoring. I recommend proceeding to polysomnography to confirm the diagnosis and to assess severity. If the patient has significant sleep disordered breathing, a manual CPAP titration study will also be performed to find the optimal treatment pressure. I informed the patient of what the sleep studies involve and after some discussion, obtained agreement to proceed. The pathophysiology of obstructive sleep apnea-hypopnea syndrome was discussed with the patient and health risks of cardiovascular and cerebrovascular disease if not treated. Risks of drowsy driving discussed in detail and patient advised to avoid long distance driving and to sample puller at the first sign of drowsiness. Patient agreed to plan. * Schedule polysomnography. * Avoid long distance driving or driving when feeling sleepy. * Avoid alcohol, sedative and muscle relaxant around bedtime. * Attempt to lose weight. * Review instructions provided by trained office staff on how to prepare for the sleep study. * Return for follow-up after sleep study completed. Counseling Topics: Weight loss health impact Plan: PSG/HST Visit Type: In Office Time Spent with Patient (minutes): 33 Provider Statement: I spent 100% of the Face to Face Visit with the patient with greater than 50% spent counseling the patient and coordination of care.
[2023-06-30 14:11] VITALS: BP 121/85; O2SAT 97
== END 2023-06-30 13:57 | disposition home or self-care (01) ==
LOC: SC 13:56
PROVIDERS: ATTEND Nurse Practitioner Family
DX: G47.33 Obstructive sleep apnea (adult) (pediatric) (principal); F17.210 Nicotine dependence, cigarettes, uncomplicated; E66.9 Obesity, unspecified; Z68.34 Body mass index [BMI] 34.0-34.9, adult
CPT/HCPCS: 99203; G0463; 99212

== ENCOUNTER 2023-07-06 07:41 | Outpatient (CLI) | payer MEDICARE ==
[2023-07-06 12:11] LABS: BASOPHILS # (AUTO) 0.1 10^3/uL (0.0-0.1); BASOPHILS % (AUTO) 0.9 %; EOSINOPHILS # (AUTO) 0.2 10^3/uL (0.0-0.7); HCT - HEMATOCRIT 53.9 % (42.0-52.0); HGB - HEMOGLOBIN 17.7 g/dL (14.0-18.0); LYMPHOCYTES # (AUTO) 1.7 10^3/uL (1.5-3.5); LYMPHOCYTES % (AUTO) 20.9 %; MEAN CORPUSCULAR HEMOGLOBIN 32.9 pg (27.0-31.0); MEAN CORPUSCULAR HGB CONC 32.8 g/dL (32.0-36.0); MEAN CORPUSCULAR VOLUME 100.2 fL (80.0-94.0); MEAN PLATELET VOLUME 11.9 fL (7.4-11.4); MONOCYTES # (AUTO) 0.7 10^3/uL (0.0-1.0); MONOCYTES % (AUTO) 8.4 %; NEUTROPHILS # (AUTO) 5.4 10^3/uL (1.5-6.6); NEUTROPHILS % (AUTO) 67.4 %; PLT - PLATELET COUNT 193 10^3/uL (130-450); RED BLOOD COUNT 5.38 10^6/uL (4.70-6.10); RED CELL DISTRIBUTION WIDTH 13.5 % (12.0-15.0); WHITE BLOOD COUNT 7.9 x10^3/uL (4.8-10.8)
[2023-07-06 12:49] LABS: ESTIMATED AVERAGE GLUCOSE 143 mg/dL (70-100); HEMOGLOBIN A1c% 6.6 % (4.27-6.07)
[2023-07-06 13:07] LABS: CALCIUM 10.6 mg/dL (8.5-10.3); CREATININE 1.3 mg/dL (0.6-1.3)
== END 2023-07-06 07:42 | disposition home or self-care (01) ==
LOC: LAB.N 07:41
PROVIDERS: ATTEND Physician Assistant
DX: E11.9 Type 2 diabetes mellitus without complications (principal); D75.1 Secondary polycythemia
CPT/HCPCS: 36415; 80048; 83036; 85025

== ENCOUNTER 2023-07-22 20:10 | Outpatient (CLI) | payer MEDICARE | END 2023-07-22 20:11 | disposition home or self-care (01) | LOC: SC 20:10 | PROVIDERS: ATTEND Nurse Practitioner Family | DX: R09.02 Hypoxemia (principal); G47.61 Periodic limb movement disorder; I49.3 Ventricular premature depolarization | CPT/HCPCS: 95810 ==

== ENCOUNTER 2023-07-26 11:15 | Outpatient (CLI) | payer MEDICARE ==
[2023-07-26 17:53] LABS: CALCIUM 10.3 mg/dL (8.5-10.3); CREATININE 1.3 mg/dL (0.6-1.3); POTASSIUM 4.6 mmol/L (3.5-4.5)
== END 2023-07-26 11:16 | disposition home or self-care (01) ==
LOC: LAB.N 11:15
PROVIDERS: ATTEND Physician Assistant
DX: I10 Essential (primary) hypertension (principal)
CPT/HCPCS: 36415; 80048

== ENCOUNTER 2023-08-24 12:56 | Outpatient (CLI) | payer MEDICARE ==
--- NOTE | 2023-08-24 15:42 | CT Report ---
PROCEDURE: Chest WO INDICATIONS: LLL PULMONARY NODULE TECHNIQUE: A CT scan of the chest was performed. Intravenous contrast media was not administered. Images were re corded and evaluated at appropriate window settings. Reformats: axial MIP of the chest, coronal and s agittal. For radiation dose reduction, the following was used: automated exposure control, adjustment of mA and/or kV according to patient size. COMPARISON: None. FINDINGS: Image quality: Diagnostic. Chest wall and lower neck: No thyroid nodule which requires sonographic follow up. No axillary or sup raclavicular adenopathy by size. Lungs and pleura: No consolidation. No pleural effusions. No pneumothorax. No suspicious pulmonary n odules which require follow up. The lingular atelectasis visualized on the comparison CT dated 2023 has resolved. Mediastinum: Heart size is normal. No pericardial effusion. No large vessel abnormality. No mediastin al adenopathy by size criteria. Bones: No aggressive osseous abnormality. Upper Abdomen: Unremarkable. IMPRESSION: 1. No suspicious pulmonary nodules which require follow-up. 2. Resolution of the atelectatic lung at the lingular base. Annual screening lung CT recommended if the patient meets screening criteria. Reviewed by: Brielle Menjivar MD on 08/24/2023 3:41 PM PDT Approved by: Brielle Menjivar MD on 08/24/2023 3:41 PM PDT Station ID: [id number]
== END 2023-08-24 12:57 | disposition home or self-care (01) ==
LOC: DI 12:56
PROVIDERS: ATTEND Physician Assistant
DX: R91.1 Solitary pulmonary nodule (principal); Z87.09 Personal history of other diseases of the respiratory system

== ENCOUNTER 2023-10-06 09:28 | Outpatient (CLI) | payer MEDICARE ==
--- NOTE | 2023-10-06 10:10 | Sleep Patient Instructions ---
Sleep Center Visit Summary - Patient Visit Information Reason for Visit: Sleep study followup - Patient Instructions Additional Instructions: Your sleep study today was negative for significant sleep disordered breathing. However, you did have elevated respiratory episodes when sleeping on your back. You should avoid sleeping on your back to control these respiratory episodes. You were found to have episodes of snoring. There are different ways to control snoring including weight loss, oral devices made by a dentist or surgical options through ENT specialist. You should not use oral devices that do not fit properly because they can affect your bite. You should also check insurance coverage of oral devices for snoring because they may not be cover well. You may obtain a referral to an ENT specialist through your primary provider. Follow-up as needed. - Clinic Information Contact: [facility] [address] [place] [address] [email or web address] T: [phone]
--- NOTE | 2023-10-06 10:14 | SLEEP CARE CONSULTATION ---
Information from patient questionnaire entered by Sandra Castillo. I have reviewed and concur with the information entered by Sandra Castillo. This document represents the service I personally performed and the decisions made by , Teresa Carlin ARNP. History of Present Illness Service Date and Time: 10/06/2023927 Initial [place] Sleepiness Scale score: 5 Current [place] Sleepiness Scale score: 8 Additional HPI information: LISA CRUZ returns for follow up and results of the recently performed polysomnography. The patient was informed of the following findings: No significant sleep disordered breathing with an average AHI of 2.7 and britta oxygen saturation of 86%. His supine AHI was elevated at 7.2. He had moderate PLMs and frequent PVCs noted during night of study. I explained the pathophysiology behind obstructive sleep apnea. Patient does not have sleep apnea and was advised how weight gain could increase the risk of developing sleep apnea in the future. I strongly encouraged the patient to lose weight. Patient does not have significant sleep disordered breathing but has elevated AHI in supine position so advised positional therapy. Methods to achieve positional management therapy were discussed; such as, positioning with pillows, wearing a T-shirt with tennis balls sewn into the back, or commercially available products. Patient has light to moderate snoring. Snoring can be reduced by weight loss. Weight loss is best achieved with diet consult. Patient instructed to contact PCP for referral. Snoring can also be treated with an oral appliance from a dentist. Advised to check insurance coverage. In addition, an ENT evaluation can be do to see if other treatment is indicated. Patient does not drink alcohol. Patient was cautioned about risks of drowsy driving until sleepiness symptoms resolve. Patient denies drowsy driving. Sleep Study - Results Type of Sleep Study: Polysomnography (COMPLETED 07/22/23) Prior sleep studies: Yes Year and Where: [facility] 2018 Polysomnography/Home Sleep Study results: IMPRESSION: The quality of the study is good. The patient had slightly reduced sleep efficiency due to frequent awakenings during the night. The sleep architecture was relatively normal considering the first-night effect. Respiratory monitoring showed no significant sleep disordered breathing (AHI = 2.7). Baseline oxygen saturation was low at 89% (britta oxygen saturation of 86%). The few respiratory events occurred almost exclusively during supine sleep (supine AHI = 7.2; non-supine = 1.35). Snore was light to moderate in intensity. There was moderate periodic leg movement of sleep not associated with sleep fragmentation. Cardiac rhythm was sinus rhythm with frequent premature ventricular contractions, occasionally in bigeminy and couplets. No abnormal behavior (parasomnia) observed during the night. CONCLUSIONS and RECOMMENDATIONS: 1. Hypoxemia ICD R09.02, mild, due to low baseline oxygen saturation. Further evaluation of hypoxemia is recommended. Consider underlying cardiopulmonary disorders including obesity hypoventilation. This sleep study may be used to qualify the patient for home oxygen therapy at night if clinically indicated. 2. Periodic leg movement (ICD G47.61), moderate, treatment may be indicated. C linical correlation advised. 3. Premature ventricular contractions (ICD I49.3), frequent. Recommend further workup and treatment as appropriate. Allergies and Home Medications Known drug allergies: Yes (as listed) Drug allergies reviewed: Yes Home medication list reviewed: Yes (no changes) Allergy and home medication list: Allergies tetanus and diphtheria toxoids Allergy (Verified 10/04/23 09:39) Unknown Review of Systems Review of systems same as previous: Yes (no changes) Physical Exam Vital signs obtained and entered by: TERESA CARBAJAL Blood Pressure: 122/85 Cuff size: long (LEFT ARM) Heart Rate: 71 O2 Saturation: 98 Height: 6 ft Weight: 249 lb 3.2 oz Body Mass Index: 33.7 BMI Classification: Obese Impression and Plan 1. Hypoxemia, mild, with a britta oxygen saturation of 86 % and 162.4 minutes spent under 90%. His baseline oxygen saturation was low normal with an average oxygen saturation of 89 %. Further evaluation of hypoxemia is recommended to consider underlying cardiopulmonary disorders. He also had elevated supine AHI at 7.2 and should avoid sleeping on his back. He voiced understanding. 2. Periodic leg movement, moderate, that did not fragment patients sleep. Periodic limb movement of sleep (PLMS) is characterized by episodes of repetitive limb movements that occur during sleep and usually involve the lower limbs. The etiology is unknown. Patient was advised that no treatment is needed at this time. If symptoms increase, then further evaluation is indicated. 3. Premature ventricular contractions, frequent. Patient was advised that further workup was recommended and treatment as appropriate. He does have a heart history of coronary heart disease and arrhythmias. He was advised to follow up with PCP or cardiology as needed. 4. Obesity, unspecified. Currently patients BMI is 33.7. He is trying to lose weight. Obesity increases the risk of apnea, CPAP pressure requirements and overall health risks especially cardiovascular and diabetes. Thus, patient is advised to continue to try to lose weight. * Follow up with PCP for hypoxemia, PLMs and PVCs as needed * Avoid supine sleep due to supine AHI at 7.2 * Attempt to lose weight * Return as needed for follow up. Counseling Topics: Sleeping position, Weight loss health impact Follow up with Sleep Care in: as needed Visit Type: In Office Time Spent with Patient (minutes): 20 Provider Statement: I spent 100% of the Face to Face Visit with the patient with greater than 50% spent counseling the patient and coordination of care.
[2023-10-06 10:23] VITALS: BP 122/85; O2SAT 98
== END 2023-10-06 09:29 | disposition home or self-care (01) ==
LOC: SC 09:28
PROVIDERS: ATTEND Nurse Practitioner Family
DX: G47.61 Periodic limb movement disorder (principal); R09.02 Hypoxemia; I49.3 Ventricular premature depolarization; E66.9 Obesity, unspecified; Z68.33 Body mass index [BMI] 33.0-33.9, adult
CPT/HCPCS: 99213; G0463; 99212

== ENCOUNTER 2023-12-01 13:06 | Outpatient (CLI) | payer MEDICARE | END 2023-12-01 13:07 | disposition home or self-care (01) | LOC: RT 13:06 | PROVIDERS: ATTEND Physician Assistant | DX: R06.2 Wheezing (principal); F17.210 Nicotine dependence, cigarettes, uncomplicated | CPT/HCPCS: 94010; 94729 ==